=== PATIENT | female | born 1975 | race Caucasian/White ===

== ENCOUNTER 2021-03-28 19:35 | Emergency (ER) | payer SELFPAY ==
[~2021-03-28] VITALS: Ht 154.9 cm; Wt 59.0 kg
--- NOTE | 2021-03-28 19:49 | NUR ---
DR. YANEZ AT BEDSIDE.
--- NOTE | 2021-03-28 19:50 | NUR ---
PT BIBRA 878 FOR LACERATION TO THE HEAD S/P HIT IT ON A COVERED BRANCH THAT WAS HANGING WITH A LOT OF LEAVES. PT STATES SHE DID NOT LOSE CONCIOUSNESS. PT IS ALERT AND ORIENTED X3. BROUGHT IN ON A STRETCHER WITH NON LABORED BREATHING.
--- NOTE | 2021-03-28 20:22 | NUR ---
emt at bedside cleaning blood off of pt head per md request.
[2021-03-28] MEDS ORDERED: LIDOCAINE HCL/MPF 1% 30 ML VIAL IJ ONE (21:06)
[2021-03-28 21:36] VITALS: BP 133/70
--- NOTE | 2021-03-28 21:36 | NUR ---
Patient discharged to home in stable condition. Written and verbal after care instructions given. Patient verbalizes understanding of instruction.
== END 2021-03-28 21:37 | disposition home or self-care (01) ==
LOC: ER 19:39
DX: S01.01XA Laceration without foreign body of scalp, initial encounter (principal); F32.9 Major depressive disorder, single episode, unspecified; Z60.2 Problems related to living alone; W22.8XXA Striking against or struck by other objects, initial encounter; Y93.89 Activity, other specified; Y92.89 Other specified places as the place of occurrence of the external cause; Y99.8 Other external cause status
CPT/HCPCS: 12002; 99283; J3490